=== PATIENT | female | born 1990 | race Hispanic/Latino ===

== ENCOUNTER 2018-02-18 22:48 | Emergency (ER) | payer OTHER ==
[2018-02-18] MEDS ORDERED: Diazepam 5 MG TAB ONE (23:18)
[2018-02-18] MEDS ORDERED: Acetaminophen 500 MG TAB ONE (23:19)
[2018-02-18] MEDS ORDERED: Ibuprofen 800 MG TAB ONE (23:19)
== END 2018-02-18 23:26 | disposition home or self-care (01) ==
LOC: MADERS 22:48
DX: F41.9 Anxiety disorder, unspecified (principal)
CPT/HCPCS: 99283

== ENCOUNTER 2019-10-11 10:55 | Outpatient (CLI) | payer OTHER ==
--- NOTE | 2019-10-11 11:29 | RAD ---
LEFT RING FINGER: HISTORY: Injury to ring finger. FINDINGS: There is deformity on the dorsal side of the base of the distal phalanx of the ring finger. I am not certain whether this is related to an old or new injury. Clinical correlation as to the exact area of patient's pain. IMPRESSION: Probable old but possibly acute fracture of the dorsal aspect of the base of the distal phalanx of th e ring finger. I do not see a definite fracture line, just deformity. Clinical correlation is recom mended. POS: [facility]
== END 2019-10-11 10:56 | disposition home or self-care (01) ==
LOC: MADRAD 10:55
PROVIDERS: ATTEND Family Medicine
DX: S69.92XA Unspecified injury of left wrist, hand and finger(s), initial encounter (principal)

== ENCOUNTER 2020-01-21 13:16 | Emergency (ER) | payer OTHER ==
[~2020-01-21 13:16] MED LIST: Sodium Chloride 0.9% 1,000 ML BAG ONE; Sodium Chloride 0.9% 100 ML BAG ONE
[2020-01-21 13:58] LABS: Bilirubin Negative (Negative); Blood, Urine Small (Negative); Glucose, Urine (Dipstick) Negative (Negative); Leukocyte Moderate (Negative); Nitrite Negative (Negative); Protein, Urine (Dipstick) Negative (Neg-Trace); Urobilinogen 0.2 mg/dL (Less than 2)
[2020-01-21 13:59] LABS: Clarity Hazy (Clear)
[2020-01-21 14:03] LABS: Bacteria/HPF Rare-Few HPF (None Seen); RBC/HPF 0-3 HPF (0-3); WBC/HPF 21-50 HPF (0-3)
[2020-01-21 14:19] LABS: #Basophils 0.1 thou/uL (0.0-0.2); #Eosinphils 0.1 thou/uL (0.0-0.7); #Lymphocytes 2.2 thou/uL (1.20-3.40); #Monocytes 0.5 thou/uL (0.11-0.59); #Neutrophils 5.5 thou/uL (1.40-6.50); %Basophils 0.7 % (0.0-1.0); %Eosinophils 1.5 % (0.0-10.0); %Monocytes 6.3 % (0.0-10.0); %Neutrophils 65.5 % (42.0-75.0); Hemoglobin 13.9 g/dL (12.0-16.0); Mean Corpuscular HGB CONC 32.6 g/dL (32.0-36.0); Mean Corpuscular Hemoglobin 31.3 pg (27.0-31.0); Mean Corpuscular Volume 96.2 fL (78.0-98.0); Mean Platelet Volume 6.1 fL (7.4-10.4); Platelet Count 273 thou/uL (130-400); RBC Distribution Width 12.1 % (11.5-14.5); Red Blood Cell (RBC) Count 4.43 mill/uL (4.20-5.40); White Blood Cell (WBC) Count 8.4 thou/uL (4.8-10.8)
[2020-01-21 14:28] LABS: BHCG - Serum POSITIVE (NEGATIVE); Pregs Control Background? CLEAR/WHITE (CLR/WHITE); Pregs Control Bar Appear? YES (CONTROL BAR)
[2020-01-21 14:35] LABS: ALT (SGPT) 19 U/L (8-55); AST (SGOT) 18 U/L (5-34); Albumin 4.1 g/dL (3.5-5.0); Alkaline Phosphatase 68 U/L (40-110); Anion Gap 12 mmol/L (10-20); BUN (Urea Nitrogen) 8 mg/dL (7.0-18.7); Bilirubin, Total 0.4 mg/dL (0.2-1.2); Calc. Creatinine Clearance 0 mL/min (70-130); Calcium 8.9 mg/dL (7.8-10.44); Carbon Dioxide 25 mmol/L (22-29); Chloride 107 mmol/L (98-107); Estimated GFR-MDRD Greater than 90; Globulin 3.2 g/dL (2.4-3.5); Glucose 87 mg/dL (70-105); Protein, Total 7.3 g/dL (6.0-8.3); Sodium 140 mmol/L (136-145)
[2020-01-21] MEDS ORDERED: cefTRIAXone\\ROCEPHIN 1 GM VIAL ONE (15:48)
[2020-01-25 21:18] LABS: GC by PCR Inconclusive (NotDetected)
[2020-01-25 21:19] LABS: Chlamydia by PCR Inconclusive (NotDetected)
== END 2020-01-21 16:25 | disposition home or self-care (01) ==
LOC: MADERS 13:16
DX: O20.0 Threatened abortion (principal); O23.41 Unspecified infection of urinary tract in pregnancy, first trimester; Z3A.01 Less than 8 weeks gestation of pregnancy
CPT/HCPCS: 80053; 81003; 81015; 84702; 84703; 85025; 87491; 87591; 96365; J0696; J3490; J7050